=== PATIENT | female | born 2005 ===

== ENCOUNTER → 2024-06-12 | Outpatient (CLI) | payer BC ==
[2024-06-12 11:00] LABS: Basophils # (auto) 0 10 ^3/uL (0-0.2); Eosinophils # (auto) 0.1 10 ^3/uL (0-0.8); Eosinophils % (auto) 2.1 % (0.0-7.0); Lymphocytes # (auto) 1.6 10 ^3/uL (0.4-5.4); Mean Corpuscular Hemoglobin 21.7 pg (28.0-32.0); Mean Corpuscular Hgb Conc. 31.3 g/dL (32.0-36.0); Monocytes # (auto) 0.6 10 ^3/uL (0-1.3); Monocytes % (auto) 9.8 % (0.0-12.0); Red Blood Cells 5.32 10^6/uL (4.0-5.20)
[2024-06-12 11:04] LABS: Basophils % (auto) 0.4 % (0.0-2.0); Hemoglobin 11.6 g/dL (12.2-16.2); Lymphocytes % (auto) 26.6 % (10.0-50.0); Mean Corpuscular Volume 69.5 fL (80.0-100.0); Neutrophils # (auto) 3.6 10 ^3/uL (1.6-8.6); Neutrophils % (auto) 61.1 % (37.0-80.0); Nucleated Red Blood Cells % 0.1 %; Red Cell Distribution Width 14.5 % (11.8-14.3); White Blood Cell 5.9 10^3/uL (4.4-10.8)
[2024-06-12 11:44] LABS: INR 1.09 (0.9-1.15); Partial Thromboplastin Time 32.8 SEC (24.5-34.5); Prothrombin Time 11.5 sec (9.3-11.8)
[2024-06-12 12:09] LABS: Alanine Aminotransferase 12 U/L (7-40); Albumin 4.1 g/dL (3.2-4.8); Alkaline Phosphatase 56 U/L (46-116); Anion Gap 6 (5-15); Aspartate Aminotransferase 24 U/L (13-40); BUN/Creatinine Ratio 6.8 (10.0-20.0); Bilirubin, Total 0.6 mg/dL (0.2-1.0); Blood Urea Nitrogen 5 mg/dL (9-23); Calcium 9.3 mg/dL (8.7-10.4); Carbon Dioxide 26 mmol/L (20-30); Chloride 104 mmol/L (98-107); Glucose 89 mg/dL (74-106); Potassium 4.1 mmol/L (3.5-5.1); Sodium 136 mmol/L (136-145); Total Protein 7.7 g/dL (5.7-8.2)
[2024-06-12 12:17] LABS: Ferritin 11.3 ng/mL (10-291); Folate (Folic Acid) 21.55 ng/mL (>5.38)
[2024-06-12 12:30] LABS: Triglycerides 46 mg/dL (< 150)
[2024-06-12 12:31] LABS: LDL Cholesterol 56 mg/dL (< 100)
[2024-06-12 12:32] LABS: Cholesterol 122 mg/dL (< 200); HDL Cholesterol 55 mg/dL (40-59)
[2024-06-13 09:44] LABS: Hepatitis B Core Total AB Negative (Negative)
[2024-06-13 12:02] LABS: Hepatitis A Total Antibody Positive (Negative); Hepatitis B Surface Antibody Negative (Negative); Hepatitis B Surface Antigen Negative (Negative); Hepatitis C Antibody Negative (Negative)
== END | disposition home or self-care (01) ==
LOC: LAB 10:44
PROVIDERS: ATTEND Internal Medicine
DX: Z00.00 Encounter for general adult medical examination without abnormal findings (principal)
CPT/HCPCS: 36415; 80053; 80061; 82306; 82607; 82728; 82746; 83540; 85025; 85610; 85730; 86704; 86706; 86708; 86803; 87340

== ENCOUNTER → 2025-10-24 | Outpatient (CLI) | payer BC ==
[2025-10-24 13:33] LABS: Hemoglobin 12.1 g/dL (12.2-16.2)
[2025-10-24 13:35] LABS: Hematocrit 38.2 % (36.0-46.0); Mean Corpuscular Hemoglobin 21.5 pg (28.0-32.0); Mean Corpuscular Volume 67.8 fL (80.0-100.0); Nucleated Red Blood Cells % 0.1 %
[2025-10-24 13:52] LABS: Iron 116.0 ug/dL (50-170)
[2025-10-24 13:54] LABS: Alanine Aminotransferase 13 U/L (7-40); Albumin 4.4 g/dL (3.2-4.8); Alkaline Phosphatase 63 U/L (46-116); Anion Gap 8 (5-15); BUN/Creatinine Ratio 9.6 (10.0-20.0); Bilirubin, Total 0.6 mg/dL (0.2-1.0); Blood Urea Nitrogen 8 mg/dL (9-23); Calcium 9.6 mg/dL (8.7-10.4); Carbon Dioxide 28 mmol/L (20-31); Chloride 103 mmol/L (98-107); Cholesterol 138 mg/dL (< 200); Creatine Kinase IFCC 92 U/L (34-145); Glucose 90 mg/dL (74-106); HDL Cholesterol 56 mg/dL (40-59); Potassium 4.5 mmol/L (3.5-5.1); Sodium 139 mmol/L (136-145); Total Protein 8.1 g/dL (5.7-8.2); Triglycerides 59 mg/dL (< 150)
[2025-10-24 13:55] LABS: Total Iron Binding Capacity 298.0 ug/dL (250-425)
[2025-10-24 13:58] LABS: Ferritin 35.8 ng/mL (10-291)
== END | disposition home or self-care (01) ==
LOC: LAB 12:57
PROVIDERS: ATTEND Internal Medicine
DX: E78.5 Hyperlipidemia, unspecified (principal); D64.9 Anemia, unspecified; R73.9 Hyperglycemia, unspecified
CPT/HCPCS: 36415; 80053; 80061; 82550; 82607; 82728; 82746; 83036; 83540; 83550; 85025